=== PATIENT | female | born 1970 | race Caucasian/White ===

== ENCOUNTER 2016-08-10 16:16 | Emergency (ER) | payer BC ==
[2016-08-10] MEDS ORDERED: DIPH,PERTUSS,TET(ADACEL) VAC/PF 0.5 ML (Tdap) IM ONE (16:35)
[2016-08-10] MEDS ORDERED: Lidocaine 1% 10 MG/ML - 20 ML VIAL SUBCUT ONE (16:35)
[2016-08-10 17:23] VITALS: RESP 16; TEMP 98.1
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
== END 2016-08-10 17:48 | disposition home or self-care (01) ==
LOC: ER 16:16
DX: S81.812A Laceration without foreign body, left lower leg, initial encounter (principal); S41.112A Laceration without foreign body of left upper arm, initial encounter; S80.12XA Contusion of left lower leg, initial encounter; V86.69XA Passenger of other special all-terrain or other off-road motor vehicle injured in nontraffic accident, initial encounter
CPT/HCPCS: 12002; 90471; 99282; J2001